=== PATIENT | male | born 1940 | race Caucasian/White ===

== ENCOUNTER 2017-12-30 14:49 | Emergency (ER) | payer OTHER ==
[2017-12-30 14:54] VITALS: BP 118/56; BMI 26.6
[2017-12-30] MEDS ORDERED: ADACEL TDaP IM ONE (15:02)
--- NOTE | 2017-12-30 15:36 | DR.GENAD ---
HPI - PCP Primary Care Physician: landen phillips [place] - Complaint/Symptoms Chief Complaint Doctors Comments: Patient admits to scratching his right forearm with a nail accidentally today Chief Complaint:: patint stated he was at his barn and the wind blew the door and it had a nail in it that cut his arm - Source History Provided: Patient - Mode of Arrival Mode of Arrival: Ambulatory - Timing Onset of Chief Complaint: 12/30/17 PMH - PMH Past Medical History: No Past Surgical History: Yes Surgical History: Cholecystectomy - Family History History of Family Medical Conditions: No - Social History Does patient currently use any type of tobacco product: No Have you used tobacco products in the last 12 months: No Type of Tobacco Use: None Does any household member use tobacco: No Alcohol Use: None Do you use any recreational Drugs:: No Lives With: Family Lives Where: Home - infectious screening In the last 2 months have you had wt loss of >10#?: NO Have you had fever, night sweats or hemotysis?: No Have you traveled outside the country in the last 6 months?: No Isolation: Standard ROS - Review of Systems Constitutional: No Symptoms Reported Eyes: No Symptoms Reported ENTM: No Symptoms Reported Respiratoy: No Symptoms Reported, Barking Cough Cardiovascular: No Symptoms Reported Gastrointestinal/Abdominal: No Symptoms Reported Genitourinary: No Symptoms Reported Neurological: No Symptoms Reported, Pre-existing Deficit Musculoskeletal: No Symptoms Reported Integumentary: No Symptoms Reported Hematologic/Lymphatic: No Symptoms Reported Endocrine: No Symptoms Reported Psychiatric: No Symptoms Reported All Other Systems: Reviewed and Negative PE - Vital Signs Vitals: Temperature 98.6 F Pulse Rate 87 Respiratory Rate 16 Blood Pressure 118/56 O2 Sat by Pulse Oximetry 100 - General General Appearance: Alert, In No Apparent Distress - Head Head Exam: Normal Inspection, Atraumatic - Eyes Eye exam: Normal Appearance, PERRL, EOMI - ENT ENT Exam: Normal Exam External Ear Exam: Normal External Inspection TM/Canal Exam: Bilateral Normal Nose Exam: Normal Nose Exam Mouth Exam: Normal Inspection Throat Exam: Normal Inspection - Neck Neck Exam: Normal Inspection - Chest Chest Inspection: Normal Inspection - Respiratory Respiratory Exam: Normal Lung Sounds Bilat Respiratory Exam: Bilateral Clear to Auscultation - Cardiovascular Cardiovascular Exam: Regular Rate, Normal Rhythm - Abdominal Exam Abdominal Exam: Normal Inspection, Normal Bowel Sounds Abdominal Tenderness: negative: RUQ, RLQ, LUQ, LLQ, Epigastrium, Suprapubic, Diffuse, Mild, Moderate, Severe, Other - Extremities Extremities Exam: Normal Inspection - Back Back Exam: Normal Inspection, Full ROM - Neurologic Neurological Exam: Alert, Oriented X3, CN II-XII Intact - Skin Skin Exam: Warm, Dry, Other (A 10 cm superficial scratch of the right forearm) ROR - Other Results Comments: Area clearned and dermabond applied Procedures - Procedure Comments Procedures: Dermabond applied to the right forearm 10cm superficial scratch - Diagnosis Discharge Problem: Superficial abrasion - Discharge Plan Condition: Stable - Follow ups/Referrals Follow ups/Referrals: NFD,None [Primary Care Provider] - 3 days - Instructions
== END 2017-12-30 15:47 | disposition home or self-care (01) ==
LOC: ER 14:59
PROC: 0XQ8XZZ Repair Right Upper Arm, External Approach (ICD-10-PCS; principal; 2017-12-30)
DX: S50.811A Abrasion of right forearm, initial encounter (principal); W45.8XXA Other foreign body or object entering through skin, initial encounter; Y92.9 Unspecified place or not applicable
CPT/HCPCS: 12004; 90471; 99282

== ENCOUNTER 2018-01-01 19:51 | Emergency (ER) | payer OTHER ==
[2018-01-01 20:04] VITALS: BP 97/53; BMI 25.8
[2018-01-01] MEDS ORDERED: NS 1000 ML 1,000 ML IV ONE (20:27)
[2018-01-01] MEDS ORDERED: NS 1000 ML 1,000 ML ONE (20:29)
[2018-01-01 20:42] LABS: BASOPHILS % (AUTO) 0.1 % (0.2-1.0); EOSINOPHILS % (AUTO) 0.2 % (0.9-2.9); HEMATOCRIT 45.1 % (42.0-54.0); HEMOGLOBIN 15.1 g/dL (13.5-18.0); LYMPHOCYTES # (AUTO) 0.3 X10^3/uL (1.3-2.9); LYMPHOCYTES % (AUTO) 4.3 % (21.0-51.0); MEAN CORPUSCULAR HEMOGLOBIN 29.4 pg (27.0-34.0); MEAN CORPUSCULAR HGB CONC 33.4 g/dL (33.0-35.0); MEAN PLATELET VOLUME 8.6 fL (7.4-11.0); MONOCYTES # (AUTO) 0.3 x10^3/uL (0.3-0.8); MONOCYTES % (AUTO) 5.4 % (0.0-13.0); NEUTROPHILS # (AUTO) 5.3 x10^3/uL (2.2-4.8); PLATELET COUNT 154 X10^3/uL (150.0-450.0); RED BLOOD COUNT 5.13 X10^6/uL (4.7-6.0); RED CELL DISTRIBUTION WIDTH 13.7 % (11.6-16.5); WHITE BLOOD COUNT 5.9 X10^3/uL (3.6-10.0)
[2018-01-01 20:55] LABS: ALANINE AMINOTRANSFERASE 47 Units/L (12-78); ALBUMIN 3.7 g/dL (3.4-5.0); ALKALINE PHOSPHATASE 71 Units/L (46-116); ASPARTATE AMINO TRANSFERASE 41 Units/L (15-37); BLOOD UREA NITROGEN 36 mg/dL (7-18); CALCIUM 8.6 mg/dL (8.5-10.1); CARBON DIOXIDE 24.2 mmol/L (21-32); CHLORIDE 100 mmol/L (98-107); COR NA(FOR HYPERGLY) 136 mmol/L (136-145); SODIUM 135 mmol/L (136-145); TOTAL PROTEIN 7.4 g/dL (6.4-8.2); eGFR BLACK RACES 51 (>60); eGFR NON BLACK RACES 42 (>60)
--- NOTE | 2018-01-01 21:15 | DR.GENAD ---
HPI - PCP Primary Care Physician: KATHRYN - Complaint/Symptoms Chief Complaint:: PT STATES" I BEEN HAVING DIARRHEA SINCE 4 AM THIS MORNING MY LEGS ARE CRAMPING" - Nurses notes reviewed Nurses Notes Review: Yes - Source History Provided: Patient - Mode of Arrival Mode of Arrival: Wheelchair - Timing Onset of Chief Complaint: 01/01/18 Came on: Suddenly - Duration Duration: Constant Duration: Hours - Severity Severity: Moderate PMH - PMH Past Medical History: Yes Past Medical History: Coronary Artery Disease Past Surgical History: Yes Surgical History: Cholecystectomy Past Surgical History Comment: PACEMAKER - Family History History of Family Medical Conditions: No - Social History Does any household member use tobacco: No Alcohol Use: None Do you use any recreational Drugs:: No Lives With: Family Lives Where: Home - infectious screening In the last 2 months have you had wt loss of >10#?: NO Have you had fever, night sweats or hemotysis?: No Have you traveled outside the country in the last 6 months?: No Isolation: Standard ROS - Review of Systems Constitutional: Weakness, Fatigue, Loss of Appetite. negative: Chills, Fever Eyes: No Symptoms Reported. negative: Eye Pain, Discharge ENTM: negative: Ear Pain, Nose Discharge, Nose Congestion, Throat Pain Respiratoy: negative: Productive Cough, Non-Productive Cough, Short of Breath, Wheezing, Hemoptysis Cardiovascular: No Symptoms Reported Gastrointestinal/Abdominal: Abdominal Pain, Diarrhea, Nausea. negative: Vomiting Genitourinary: No Symptoms Reported. negative: Discharge, Dysuria, Hematuria Neurological: No Symptoms Reported Musculoskeletal: Muscle Pain Integumentary: No Symptoms Reported Hematologic/Lymphatic: No Symptoms Reported Endocrine: No Symptoms Reported All Other Systems: Reviewed and Negative PE - Vital Signs Vitals: Temperature 98.2 F Pulse Rate 114 Respiratory Rate 20 Blood Pressure 97/53 O2 Sat by Pulse Oximetry 97 - General Limitations: No Limitations General Appearance: Alert - Head Head Exam: Normal Inspection - Eyes Eye exam: Normal Appearance - ENT ENT Exam: Normal External Ear Exam External Ear Exam: Normal External Inspection TM/Canal Exam: Bilateral Normal Nose Exam: Normal Nose Exam Throat Exam: Normal Inspection - Neck Neck Exam: Trachea Midline - Chest Chest Inspection: Symmetric Chest Wall Rise - Respiratory Respiratory Exam: Normal Lung Sounds Bilat Respiratory Exam: Bilateral Clear to Auscultation - Cardiovascular Cardiovascular Exam: Regular Rate, Normal Rhythm, Normal Heart Sounds - Abdominal Exam Abdominal Exam: Normal Bowel Sounds, Soft, Tenderness Abdominal Tenderness: Diffuse, Moderate - Extremities Extremities Exam: Normal Inspection - Back Back Exam: Normal Inspection - Neurologic Neurological Exam: Alert, Oriented X3 - Psychiatric Psychiatric Exam: Normal Affect, Normal Mood - Skin Skin Exam: Normal Color MDM - Additional Information Additional Information Obtained From: Family - Differential Diagnosis Differential Diagnosis: DEHYDRATION, DIARRHEA, GASTROENTERITIS Course - Treatment Treatment: SEE ORDERS. IV BOLUS NS IN ED. FEELING BETTER. - Reevaluation 1st: Improved - Education/Counseling Education/Counseling: Patient, Family, Education Educated On: Treatment, Diagnosis, Needs for Follow Up ROR - Labs Reviewed Laboratory Results Reviewed?: Yes Result Diagrams: 01/01/18 20:33 01/01/18 20:33 Laboratory: WBC 5.9 X10^3/uL (3.6-10.0) 01/01/18 20:33 RBC 5.13 X10^6/uL (4.7-6.0) 01/01/18 20:33 Hgb 15.1 g/dL (13.5-18.0) 01/01/18 20:33 Hct 45.1 % (42.0-54.0) 01/01/18 20:33 MCV 88.0 fL (80.0-100.0) 01/01/18 20: MCH 29.4 pg (27.0-34.0) 01/01/18 20: MCHC 33.4 g/dL (33.0-35.0) 01/01/18 20: RDW 13.7 % (11.6-16.5) 01/01/18 20: Plt Count 154 X10^3/uL (150.0-450.0) 01/01/18 20:33 MPV 8.6 fL (7.4-11.0) 01/01/18 20: Neut % 90.0 % (42.0-75.0) H 01/01/18 20: Lymph % 4.3 % (21.0-51.0) L 01/01/18 20:33 [place] % 5.4 % (0.0-13.0) 01/01/18 20: Eos % 0.2 % (0.9-2.9) L 01/01/18 20: Baso % 0.1 % (0.2-1.0) L 01/01/18 20:33 Neut # 5.3 x10^3/uL (2.2-4.8) H 01/01/18 20:33 Lymph # 0.3 X10^3/uL (1.3-2.9) L 01/01/18 20:33 [place] # 0.3 x10^3/uL (0.3-0.8) 01/01/18 20:33 Eos # 0.0 x10^3/uL (0.0-0.2) 01/01/18 20:33 Baso # 0.0 X10^3/uL (0.0-0.1) 01/01/18 20:33 Absolute Nucleated RBC 0.0 /100WBC 01/01/18 20:33 Sodium 135 mmol/L (136-145) L 01/01/18 20:33 Corrected Sodium 136 mmol/L (136-145) 01/01/18 20:33 Potassium 4.0 mmol/L (3.5-5.1) 01/01/18 20:33 Chloride 100 mmol/L (98-107) 01/01/18 20:33 Carbon Dioxide 24.2 mmol/L (21-32) 01/01/18 20:33 BUN 36 mg/dL (7-18) H 01/01/18 20:33 Creatinine 1.70 mg/dL (0.70-1.30) H 01/01/18 20:33 Est GFR (MDRD) Af Amer 51 (>60) L 01/01/18 20:33 Est GFR (MDRD) Non-Af 42 (>60) L 01/01/18 20:33 Glucose 159 mg/dL (65-99) H 01/01/18 20:33 Calcium 8.6 mg/dL (8.5-10.1) 01/01/18 20:33 Corrected Calcium TNP 01/01/18 20:33 Total Bilirubin 0.80 mg/dL (0.2-1.0) 01/01/18 20:33 AST 41 Units/L (15-37) H 01/01/18 20:33 ALT 47 Units/L (12-78) 01/01/18 20:33 Alkaline Phosphatase 71 Units/L (46-116) 01/01/18 20:33 Total Protein 7.4 g/dL (6.4-8.2) 01/01/18 20:33 Albumin 3.7 g/dL (3.4-5.0) 01/01/18 20:33 Globulin 3.7 g/dL (2.5-4.5) 01/01/18 20:33 Albumin/Globulin Ratio 1.0 Ratio (1.1-2.1) L 01/01/18 20:33 Amylase 69 Units/L (25-115) 01/01/18 20:33 Lipase 451 Units/L (73-393) H 01/01/18 20:33 - XRAY XRAY Interpreted by: Radiologist XRAY Findings: REPORT DISCUSS WITH PATIENT. - Diagnosis Discharge Problem: Mild dehydration Diarrhea Qualifiers: Diarrhea type: unspecified type Qualified Code(s): R19.7 - Diarrhea, unspecified Abdominal pain Qualifiers: Abdominal location: generalized Qualified Code(s): R10.84 - Generalized abdominal pain - Discharge Plan Condition: Stable Prescriptions: Diphenoxylate/Atropine [Lomotil] 1 tab PO TID #15 tab - Follow ups/Referrals Follow ups/Referrals: ELLEN PERALTA [Primary Care Provider] - 3 days - Instructions Instructions: Dehydration, Elderly, [id number], Viral Gastroenteritis, Adult , [id number]
[2018-01-01 21:25] LABS: AMYLASE 69 Units/L (25-115); LIPASE 451 Units/L (73-393)
--- NOTE | 2018-01-01 22:52 | CT ---
CT abdomen and pelvis without contrast Indication: Diarrhea, leg cramping Comparison: None Technique: CT images of the abdomen and pelvis were obtained without contrast. Automatic exposure con trol was utilized. 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 Images of the lower chest demonstrate moder ate size hiatal hernia of the stomach. The lung bases are grossly clear. Evaluation is limited without contrast. Accounting for this, the liver, spleen, more distal stomach, duodenum, pancreas, adrenals, and kidneys demonstrate no significant abnormality. There are several r ounded hypodense lesions throughout both kidneys, most suggestive for simple cysts, although these ca nnot be definitively characterized; consider nonemergent ultrasound or renal protocol CT for further evaluation. There is colonic diverticulosis without evidence for acute diverticulitis. No significant thickening or dilatation of the lower GI tract bowel loops appreciated. Normal appendix. Urinary bladder, prosta te, and rectum are unremarkable. No free fluid or adenopathy identified. Impression: No acute process within the abdomen or pelvis. Diverticulosis, hiatal hernia, and other findings as above. Reported By:
== END 2018-01-02 00:30 | disposition home or self-care (01) ==
LOC: ER 20:07
DX: R10.84 Generalized abdominal pain (principal); E86.0 Dehydration; R19.7 Diarrhea, unspecified
CPT/HCPCS: 36415; 74176; 80053; 82150; 83690; 85025; 96365; 99283; 99284; A4222